=== PATIENT | female | born 1970 | race Caucasian/White ===

== ENCOUNTER 2021-04-29 01:30 | Emergency (ER) | payer BC ==
[~2021-04-29] VITALS: Ht 162.6 cm; Wt 81.6 kg
[2021-04-29 01:45] VITALS: BP 149/77
[2021-04-29] MEDS ORDERED: ONDANSETRON 4 MG ODT PO ONE (02:15)
[2021-04-29 02:46] LABS: APPEARANCE,URINE CLEAR (CLEAR); BILIRUBIN,URINE NEGATIVE (NEGATIVE); BLOOD, URINE NEGATIVE (NEGATIVE); COLOR,URINE YELLOW (YELLOW); LEUKOCYTE ESTERASE ,URINE NEGATIVE (NEGATIVE); NITRITE, URINE NEGATIVE (NEGATIVE); UGLUCOSE NEGATIVE (NEGATIVE)
[2021-04-29 02:48] LABS: BASOPHILS # (AUTO) 0.1 K/uL (0.00-0.22); BASOPHILS % (AUTO) 0.6 % (0.0-2.0); EOSINOPHILS # (AUTO) 0.1 K/uL (0-0.4); EOSINOPHILS % (AUTO) 0.8 % (0.0-4.0); HEMATOCRIT 30.9 % (36-48); HEMOGLOBIN 9.8 g/dL (12.0-16.0); LYMPHOCYTES # (AUTO) 2.1 K/uL (2.5-16.5); LYMPHOCYTES % (AUTO) 22.6 % (20.5-51.1); MEAN CORPUSCULAR HEMOGLOBIN 23 pg (27-31); MEAN CORPUSCULAR HGB CONC 32 g/dL (33-37); MEAN CORPUSCULAR VOLUME 71.8 fL (80-94); MONOCYTES # (AUTO) 0.7 K/uL (0.8-1.0); MONOCYTES % (AUTO) 7.4 % (1.7-9.3); NEUTROPHILS # (AUTO) 6.3 K/uL (1.8-7.7); NEUTROPHILS % (AUTO) 68.6 % (42.2-75.2); PLATELET COUNT (AUTO) 388 K/uL (140-450); RED BLOOD CELL COUNT(AUTO) 4.31 MIL/uL (4.20-5.40); RED CELL DISTRIBUTION WIDTH 17.7 % (11.6-13.7); WHITE BLOOD COUNT (AUTO) 9.1 K/uL (4.8-10.8)
[2021-04-29] MEDS ORDERED: ONDANSETRON 4 MG/2 ML VIAL IVP ONE (02:50)
--- NOTE | 2021-04-29 02:57 | NUR ---
CLARIFIED WITH TO GIVE ZOFRAN IM INSTEAD OF IVP. UNABLE TO PUT IV IN PT THAT STAYS IN LOBBY.
[2021-04-29] MEDS ORDERED: ONDANSETRON 4 MG/2 ML VIAL IM ONE (03:00)
--- NOTE | 2021-04-29 03:00 | NUR ---
IN TRIAGE ASSESSING PT.
[2021-04-29] MEDS ORDERED: MORPHINE SULFATE 4 MG/ML SYR ONE (03:04)
[2021-04-29 03:11] LABS: ANION GAP 16.2 (8-16); CARBON DIOXIDE 23.6 mmol/L (21-32); CREATININE 0.8 mg/dL (0.6-1.3); POTASSIUM 3.8 mmol/L (3.5-5.1)
--- NOTE | 2021-04-29 03:11 | NUR ---
RECEIVED VERBAL ORDER FROM TO GIVE MORPHINE 4MG IM FOR PAIN. ORDER CARRIED OUT
[2021-04-29] MEDS ORDERED: diphenhydrAMINE 50 MG/ML VIAL IM ONE (03:20)
[2021-04-29] MEDS ORDERED: METOCLOPRAMIDE 10 MG/2 ML INJ VIAL IM ONE (03:20)
[2021-04-29] MEDS ORDERED: MORPHINE SULFATE 4 MG/ML SYR IM ONE (03:20)
[2021-04-29 03:21] LABS: ALBUMIN 3.9 g/dL (3.4-5.0); PHOSPHORUS 2.4 mg/dL (2.5-4.9); TOTAL BILIRUBIN 0.2 mg/dL (0.0-1.0)
--- NOTE | 2021-04-29 03:25 | NUR ---
PT VOMITED AND URINATED IN TRIAGE. PT GIVEN EXTRA CLOTHES.
[2021-04-29 04:13] LABS: BILIRUBIN,DIRECT 0.1 mg/dL (0.0-0.3)
[2021-04-29] MEDS ORDERED: ONDA-188 SL (04:27)
[2021-04-29 04:31] VITALS: BP 149/77
--- NOTE | 2021-04-29 04:31 | NUR ---
Patient does not wish to proceed with medical care recommended by . Patient given information related to possible complications, up to and including , which could occur as a result of leaving hospital at this time. Patient verbalizes understanding of risks involved leaving against medical advice. Patient has signed AMA form.
== END 2021-04-29 04:31 | disposition left against medical advice (07) ==
LOC: MED 01:30
DX: R11.2 Nausea with vomiting, unspecified (principal)
CPT/HCPCS: 36415; 71045; 80048; 80076; 81003; 83690; 83735; 84100; 84484; 85025; 93005; 96372; 96374; 99285; J1200; J2270; J2405; J2765; Q0162